=== PATIENT | female | born 2000 | race Caucasian/White ===

== ENCOUNTER 2018-02-11 01:43 | Emergency (ER) | payer OTHER ==
[2018-02-11] MEDS ORDERED: ONDANSETRON 4 MG/2 ML VIAL ONE (01:47)
[2018-02-11] MEDS ORDERED: NS 1,000 ML IV ONE (01:49)
[2018-02-11] MEDS ORDERED: ONDANSETRON 4 MG/2 ML VIAL IVP ONE (01:49)
--- NOTE | 2018-02-11 01:51 | EDPHY ---
H & P Time Seen by Provider: 02/11/18 01:49 HPI/ROS: HPI CHIEF COMPLAINT: Alcohol Intoxication HISTORY OF PRESENT ILLNESS: 17-year-old female, otherwise healthy presents emergency room with acute alcohol intoxication. She is on a [employer] Hold. Patient presents highly intoxicated alcohol unable to walk and was vomiting. Denies any co ingestion or pills. Denies trauma. States she drank too much liquor this evening. Past Medical History: Denies medical history Past Surgical History: Denies surgical history Social History: Alcohol this evening. [employer] student. Family History: Noncontributory ROS REVIEW OF SYSTEMS: 10 Systems were reviewed and negative with the exception of the elements mentioned in the history of present illness. Exam Constitutional Intoxicated, triage nursing summary reviewed, vital signs reviewed, Sleepy, smells of alcohol Eyes normal conjunctivae and sclera, horizontal beating nystagmus consistent acute alcohol intoxication, otherwise pupils equal and react to light HENT normal inspection, atraumatic, moist mucus membranes, no epistaxis, neck supple/ no meningismus, no raccoon eyes. Respiratory clear to auscultation bilaterally, normal breath sounds, no respiratory distress, no wheezing. Cardiovascular rate normal, regular rhythm, no murmur, no edema, distal pulses normal. Gastrointestinal soft, non-tender, no rebound, no guarding, normal bowel sounds, no distension, no pulsatile mass. Genitourinary no CVA tenderness. Musculoskeletal no midline vertebral tenderness, full range of motion, no calf swelling, no tenderness of extremities, no meningismus, good pulses, neurovascularly intact. Skin pink, warm, & dry, no rash, skin atraumatic. Neurologic sleepy, intoxicated with alcohol,, alert and oriented x 3, AAOx3, moves all 4 extremities equally, motor intact, sensory intact, CN II-XII intact , , normal vision, normal speech. Psychiatric normal mood/affect. Heme/Lymph/Immune no lymphadenopathy. Differential Diagnosis: Includes but is not limited to in a particular order acute alcohol intoxication, alcohol abuse, dehydration, electrolyte abnormality , nausea vomiting from acute alcohol intoxication Medical Decision Making: Plan for this patient IV establishment IV fluid bolus 1 L normal saline, 4 mg IV Zofran, check serum alcohol level, electrolytes. Monitor for worsening condition monitor for sobriety. Re-evaluation: 0225: Serum alcohol 193. 0334: Patient is up ambulatory. No acute distress. Stable gait. Clinically sober and safe for discharge. Source: Patient Constitutional: Initial Vital Signs Temperature (C) 36.7 C 02/11/18 01:50 Heart Rate 70 02/11/18 01:50 Respiratory Rate 16 02/11/18 01:50 Blood Pressure 120/77 02/11/18 01:50 O2 Sat (%) 97 02/11/18 01:50 O2 Delivery Mode Room Air Allergies/Adverse Reactions: gluten Allergy (Verified 02/11/18 01:47) Home Medications: Medication Instructions Recorded NK [No Known Home Meds] 02/11/18 Medical Decision Making - Data Points Laboratory Results: Laboratory Results 02/11/18 01:55 02/11/18 01:55 Sodium 141 mEq/L mEq/L (135-145) Potassium 3.9 mEq/L mEq/L (3.3-5.0) Chloride 107 mEq/L mEq/L (97-110) Carbon Dioxide 20 mEq/l L mEq/l (22-31) Anion Gap 14 mEq/L mEq/L (8-16) BUN 14 mg/dL mg/dL (7-23) Creatinine 0.8 mg/dL mg/dL (0.6-1.0) Estimated GFR > 60 Glucose 118 mg/dL H mg/dL (70-100) Calcium 8.2 mg/dL L mg/dL (8.5-10.4) Ethyl Alcohol 193 mg/dL H mg/dL (0-10) Medications Given: Discontinued Medications Sodium Chloride (Ns) 1,000 mls @ 0 mls/hr IV EDNOW ONE; Wide Open PRN Reason: Protocol Stop: 02/11/18 01:50 Last Admin: 02/11/18 01:53 Dose: 1,000 mls Ondansetron HCl (Zofran) 4 mg IVP EDNOW ONE Stop: 02/11/18 01:50 Last Admin: 02/11/18 01:53 Dose: 4 mg Departure - Departure Disposition: Home, Routine, Self-Care Clinical Impression: Alcoholic intoxication Qualifiers: Complication of substance-induced condition: uncomplicated Qualified Code(s): F10.920 - Alcohol use, unspecified with intoxication, uncomplicated Condition: Good Instructions: Alcohol Intoxication (ED) Referrals: Patient,NotPresent [Primary Care Provider] - As per Instructions
[2018-02-11 03:55] VITALS: BP 118/70
== END 2018-02-11 03:54 | disposition home or self-care (01) ==
DX: F10.920 Alcohol use, unspecified with intoxication, uncomplicated (principal); E86.9 Volume depletion, unspecified
CPT/HCPCS: 96374; G0480; J2405